=== PATIENT | female | born 1970 | race Caucasian/White ===

== ENCOUNTER 2018-01-27 10:50 | Emergency (ER) | payer OTHER ==
[2018-01-27] MEDS: SOD CHLORIDE 0.9% 1,000 ML IV (11:53)
[2018-01-27] MEDS: morphine 4 MG/ML VIAL IV (11:53)
[2018-01-27] MEDS: ONDANSETRON 4 MG INJ IV (11:53)
[2018-01-27 11:54] LABS: ADD UMIC YES; UR ASCORBIC ACID NEGATIVE (NEGATIVE); UR BILIRUBIN (Dip) NEGATIVE (NEGATIVE); UR BLOOD (Dip) 2+ mg/dL (NEGATIVE); UR CLARITY CLEAR (CLEAR); UR COLOR YELLOW (YELLOW); UR GLUCOSE (Dip) NEGATIVE (NEGATIVE); UR KETONES (Dip) NEGATIVE (NEGATIVE); UR LEUKOCYTE ESTERASE (Dip) TRACE Leu/ul (NEGATIVE); UR MUCUS FEW /HPF (NONE SEEN); UR NITRITE (Dip) NEGATIVE (NEGATIVE); UR RBC 18 /HPF (0-5); UR SPECIFIC GRAVITY (Dip) 1.019 (1.003-1.030); UR SQUAMOUS EPITHELIAL CELL FEW /HPF (FEW); UR TOTAL PROTEIN (Dip) 2+ mg/dl (NEGATIVE); UR UROBILINOGEN (Dip) NEGATIVE (NEGATIVE); UR WBC 4 /HPF (0-5)
[2018-01-27 12:00] LABS: ADD MAN DIFF? NO; BASOPHIL # 0.1 10^3/ul (0.0-0.1); BASOPHILS % 0.3 % (0.0-2.0); EOSINOPHILS % 0.1 % (0.0-7.0); HEMATOCRIT 34.4 % (37.0-47.0); HEMOGLOBIN 12.3 g/dl (12.0-16.0); LYMPHOCYTES # 2.3 10^3/ul (0.8-2.9); LYMPHOCYTES % 10.9 % (15.0-51.0); MEAN CORPUSCULAR HEMOGLOBIN 33.2 pg (29.0-33.0); MEAN CORPUSCULAR HGB CONC 35.8 g/dl (32.0-37.0); MEAN CORPUSCULAR VOLUME 92.7 fl (82.0-101.0); MEAN PLATELET VOLUME 9.5 fl (7.4-10.4); MONOCYTE # 1.3 10^3/ul (0.3-0.9); NEUTROPHIL # 17.5 10^3/ul (1.6-7.5); NEUTROPHILS % 82.1 % (39.0-77.0); PLATELET COUNT 244 10^3/UL (140-415); RED BLOOD COUNT 3.71 10^6/ul (4.20-5.40)
[2018-01-27 12:00] LABS: WHITE BLOOD COUNT 21.3 10^3/ul (4.8-10.8)
[2018-01-27 12:31] LABS: ALANINE AMINOTRANSFERASE 26 IU/L (13-69); ALBUMIN 4.1 g/dl (3.3-4.9); ALBUMIN/GLOBULIN RATIO 1.28; ALKALINE PHOSPHATASE 87 IU/L (42-121); ANION GAP 15 (8-16); ASPARTATE AMINO TRANSFERASE 19 IU/L (15-46); BLOOD UREA NITROGEN 8 mg/dl (7-20); CALCIUM 8.9 mg/dl (8.4-10.2); CARBON DIOXIDE 28 mmol/L (21-31); CHLORIDE 102 mmol/L (97-110); CREATININE 0.64 mg/dl (0.44-1.00); GLUCOSE 102 mg/dl (70-220); LIPASE 49 U/L (23-300); POTASSIUM 4.1 mmol/L (3.5-5.1); SODIUM 141 mmol/L (135-144); TOTAL PROTEIN 7.3 g/dl (6.1-8.1)
[2018-01-27] MEDS: SODIUM CHLORIDE 0.9% 1L BAG IV* (13:10)
[2018-01-27] MEDS: PIPER-TAZO 3.375 GM IV (PMX) 100 ML IVPB (13:19)
[2018-01-27] MEDS ORDERED: HYDROmorphONE 1 MG/5 ML IV SYRINGE IV (13:23)
[2018-01-27] MEDS: HYDROmorphONE 0.5 MG/0.5 ML SYG IV (13:39)
[2018-01-27 13:47] LABS: LACTIC ACID 1.1 mmol/L (0.5-2.0)
[2018-01-27 13:49] LABS: INR 1.01; PARTIAL THROMBOPLASTIN TIME 29.7 Sec (25.0-35.0); PROTIME 13.4 Sec (11.9-14.9)
[2018-01-27 15:50] LABS: LACTIC ACID 0.9 mmol/L (0.5-2.0)
[2018-01-27] MEDS: SOD CHLORIDE 0.9% 100 ML (16:02)
[2018-01-27] MEDS: IOHEXOL 300MG/ML 150 ML BTL (16:03)
[2018-01-27] MEDS: KETOROLAC 30 MG INJ IV (17:17)
== END 2018-01-27 17:49 | disposition home or self-care (01) ==
LOC: FTE 10:50
DX: R10.31 Right lower quadrant pain (principal); R10.32 Left lower quadrant pain; I10 Essential (primary) hypertension
CPT/HCPCS: 36415; 74177; 80053; 81001; 83605; 83690; 84703; 85025; 85610; 85730; 87040; 96374; 96375; 99285-25